=== PATIENT | female | born 1940 | race Caucasian/White ===

== ENCOUNTER → 2016-03-30 | Outpatient (CLI) | payer OTHER ==
--- NOTE | 2016-03-30 15:39 | DX ---
DEXA Bone Mineral Densitometry Clinical Indications: Postmenopausal, history of left hip fracture Comparison: Technique: Bone Mineral Densitometry (BMD) by Dual Energy X-Ray Absorptiometry (DEXA) was performed utilizing the [employer] scanner. The lumbar spine was evaluated in the AP projection. The bilat eral hips and forearm were evaluated in the AP projection. Vertebral fracture assessment was also pe rformed. Findings: AP Lumbar Spine: The L1and O1vbnbgiabe bodies were evaluated. L3 and L4 are excluded due to degenera tive sclerosis. BMD: 0.857 gm/cm2 T-score: -2.6 SD Z-score: -0.6 SD L1-L4 has increased by 5.5%, likely related to degenerative sclerosis. AP Left Hip: Neck BMD: 0.682 gm/cm2 T-score: -2.6 SD Z-score: -0.4 SD Total BMD is significantly decreased by 6.1%. This is likely not significant due to differences in me asuring the equipment AP Right Hip: Neck BMD: 0.701 gm/cm2 T-score: -2.4 SD Z-score: -0.2 SD No significant change. There is a large calcified lesion in the pelvis that is consistent with a calc ified fibroid. AP Right Forearm, 02/23: BMD: 0.536 gm/cm2 T-score: -3.9 SD Z-score: -1.4 SD Significantly increased by 12.4% Vertebral Fracture Assessment: No significant fracture deformity. Lumbar BMD is likely significantly increased by degenerative sclerosis and atherosclerotic calcification of the abdominal aorta. Conclusion: Considering the lowest measured site, the patient is osteoporotic and at increased risk for fracture. Since the forearm is the lowest measured site, it would be worthwhile to exclude hyperp arathyroidism. The ten year FRAX risk for any major osteoporotic fracture , which excludes the risk f or a wrist fracture, is 27.1% and for a hip fracture is 8.8%. According to the recommendations of the National Osteoporosis Foundation, this patient would be a good candidate for bone strengthening phar macologic intervention. Consider excluding secondary metabolic causes of bone loss (reported to be present in as many as 30% of patients with normal Z scores). Basic laboratory evaluation might include blood chemistries (calci um, phosphorus, alkaline phosphatase, liver function tests, creatinine, total protein), complete bloo d count, serum 25-OH- vitamin D3 level, 24-hour urine calcium, serum TSH and serum PTH. Targeted l aboratory testing based on individual patient circumstances might include serum electrophoresis (SPEP or UPEP), anti-tissue transglutaminase antibody levels (celiac disease) , serum bone specific alkal ine phosphatase, bone turnover markers (urine, serum) or fibroblast growth factor 23 (FGF 23)(evaluat e for unexplained osteomalacia). If secondary causes are excluded, then consider initiating treatment with a bisphosphonate (such as F osamax, Actonel or Boniva). If the patient is unable to use an oral bisphosphonate, another agent suc h as IV bisphosphonates (Boniva or Reclast), teriparatide (Forteo), a selective estrogen receptor mo dulator (Evista) or Denosumab ( anti RANKL monoclonal antibody) might be considered. If antiresorptive therapy is initiated and if clinically indicated, consider obtaining a baseline and 3 month followup bone resorption marker (NTX, CTX, TRAP5b or Pyridinoline, deoxypyridinoline) to mon itor the therapeutic effect. Supplementing an insufficient diet to achieve total intakes of 1500 mg calcium and 800 International Units of vitamin D daily should be considered. Osteoporosis prevention and treatment begins by modify ing risk factors. The patient should be encouraged to participate in a regular exercise program that includes weightbearing and muscle strengthening regimens, as is clinically appropriate. Recommend follow-up DEXA in one year to assess the efficacy of pharmacologic intervention and/or brigette ection of appropriate secondary cause.
== END ==
LOC: FIMAGING 14:00
PROVIDERS: ATTEND Physician Assistant
DX: M81.0 Age-related osteoporosis without current pathological fracture (principal)

== ENCOUNTER 2016-12-22 15:45 | Emergency (ER) | payer OTHER ==
--- NOTE | 2016-12-22 16:33 | EDPHY ---
H & P Smoking Status: Never smoked Time Seen by Provider: 12/22/16 16:03 HPI/ROS: CHIEF COMPLAINT: Fall, left eyebrow laceration, left shoulder injury HISTORY OF PRESENT ILLNESS: 76-year-old female presents to the emergency department by private vehicle with her neighbor after she had a witnessed fall just prior to arrival. The patient states that she was out front of her home and tripped over something and fell landing on her left side. She injured her left shoulder and left eyebrow. She thinks that she may have lost consciousness just briefly. She denies a headache. Denies neck or back pain. Denies chest pain or difficulty breathing. Denies any presyncopal symptoms prior to her fall. She complains of pain in her left shoulder and inability to move her left shoulder. She denies numbness or tingling in her fingers or toes. REVIEW OF SYSTEMS: Constitutional: No fever, no chills. Eyes: No double or blurry vision. ENT: No sore throat. Respiratory: No cough, no shortness of breath. Cardiac: No chest pain. Gastrointestinal: No abdominal pain, vomiting or diarrhea. Genitourinary: No dysuria. Musculoskeletal: Left shoulder injury. No neck or back pain. Skin: Eyebrow laceration. No rashes. Neurological: No headache. (Cami Olson) Past Medical/Surgical History: PE (Whitney,Cami M) Social History: and lives alone in [place] (Cami Olson) Physical Exam: General Appearance: Alert, no distress. Mentating normally and answering questions appropriately. Her neighbors at bedside. Eyes: Pupils equal and round. Extraocular motions are all intact. ENT: Mouth: Mucous membranes moist. No dental injury or malocclusion. Respiratory: No wheezing, rhonchi, or rales, lungs are clear to auscultation. Cardiovascular: Regular rate and rhythm. Gastrointestinal: Abdomen is soft and nontender, no masses, no rebound or guarding, bowel sounds normal. Neurological: Alert and oriented x 3, cranial nerves II through XII grossly intact Skin: 3 cm left eyebrow laceration. No facial bone tenderness. Warm and dry, no rashes. Musculoskeletal: Nontender to palpate along the cervical, thoracic or lumbar spine. Neck is supple. Extremities: Swelling noted to the left shoulder. Diffusely tender to palpate to the left humeral head. Unable to move the left shoulder secondary to pain. No pain with palpation in the left elbow, left wrist or hand. Normal sensation to light touch with normal 2 point discrimination. Strong radial pulse at the left and the right wrist. Psychiatric: Patient is oriented X 3, there is no agitation. (Cami Olson) Constitutional: Initial Vital Signs Temperature (C) 36.6 C 12/22/16 15:49 Heart Rate 87 12/22/16 15:49 Respiratory Rate 16 12/22/16 15:49 Blood Pressure 110/47 L 12/22/16 15:49 O2 Sat (%) 95 12/22/16 15:49 O2 Delivery Mode Room Air Allergies/Adverse Reactions: No Known Allergies Allergy (Verified 12/22/16 15:48) Home Medications: Medication Instructions Recorded Herbals/Supplements -Info Only 1 ea PO DAILY 10/23/15 Thyroid,Pork [ARMOUR THYROID] 15 mg PO DAILY 10/23/15 Hydrocodone/APAP 5/325 [[place] 1 each PO Q4-6PRN PRN #15 tab 12/22/16 5/325 (*)] Medical Decision Making - Diagnostics Imaging: Discussed imaging studies w/ house calls nurse practitioner Radiologist, I viewed and interpreted images myself - Diagnostics Imaging Results: Imaging Impressions Shoulder X-Ray 12/22/16 16:16 Impression: Acute comminuted fracture of the surgical neck of the left humerus with extension into the greater tubercle, which is mildly displaced, as described above. Cervical Spine CT 12/22/16 16:18 Impression: 1. No acute fracture or soft tissue swelling. 2. If the patient has persistent pain or neurologic deficits, consider cervical spine MRI. Findings discussed with Emergency Department physician anatomic pathology assistant, Cami Olson on 12/22/2016, 16:52. Head CT 12/22/16 16:18 Impression: 1. Left frontal periorbital scalp laceration. 2. No acute fracture or evidence of acute intracranial injury. Findings discussed with Emergency Department physician, Cami Olson on 2016, 16:52. Procedures: Laceration repair. Verbal consent was obtained from the patient. The 3 cm laceration on the left eyebrow was anesthetized using 1% lidocaine with epinephrine. The wound was irrigated with saline, draped and explored to its base with a gloved finger. There were no deep structures involved. The wound was repaired with 6 0 Prolene , 10 sutures. The wound repair was complex. The procedure was performed by myself. Patient was placed in a sling and examined post application in good placement with normal LICENSED DISPENSING OPTICIAN. (Cami Olson) ED Course/Re-evaluation: I evaluated this patient with Cami Olson. I spoke to Dr. Woody Cedeño from Orthopedic surgery and he thinks he will be most appropriate to sling and swath the left shoulder. No surgery is required at this time. She will follow up with Dr. Cedeño in the office will give her appropriate pain meds and instructions. (Sunday Henao) CT imaging of the head and cervical spine was ordered which revealed no fractures or intracranial bleeding. The laceration above her left eyebrow was repaired, see procedure note. I spoke with the on-call orthopedic surgeon, Dr. Woody Cedeño, who came to evaluate the patient. He did not recommend further imaging or any splint. He agreed with sling and he would see her in follow-up in the clinic in 2 weeks. The patient was able to ambulate without difficulty in the emergency department. She feels comfortable going home with a sling in place. She was given 400 mg of ibuprofen p. o. in the emergency department. She was given a prescription for hydrocodone per Dr. Woody Cedeño request. Patient was given precautions and told that this medication will make her very drowsy. (Cami Olson) Differential Diagnosis: Head injury including but not limited to concussion, skull fracture, intraparenchymal contusion, subarachnoid, subdural and epidural hematoma. Shoulder injury including but not limited to fracture, dislocation, contusion, sprain (Cami Olson) - Data Points Medications Given: Discontinued Medications Hydrocodone Bitart/Acetaminophen ([place] 5/325mg Prepack#6) 1 btl TAKEHOME EDNOW ONE Stop: 12/22/16 18:12 Last Admin: 12/22/16 18:15 Dose: 1 btl Ibuprofen (Motrin) 400 mg PO EDNOW ONE Stop: 12/22/16 17:37 Last Admin: 12/22/16 17:38 Dose: 400 mg Departure - Departure Disposition: Home, Routine, Self-Care Clinical Impression: Laceration of left eyebrow Qualifiers: Encounter type: initial encounter Qualified Code(s): S01.112A - Laceration without foreign body of left eyelid and periocular area, initial encounter Fracture of humeral head, left, closed Qualifiers: Encounter type: initial encounter Qualified Code(s): S42.292A - Other displaced fracture of upper end of left humerus, initial encounter for closed fracture Condition: Good Instructions: Hydrocodone/Acetaminophen (By mouth), Care For Your Stitches (ED) , Arm Fracture in Adults (ED), Laceration (ED), Acute Wounds (ED) Additional Instructions: Wound Care Follow-Up: Removal of sutures in 5 days. Suture removal is complimentary in uncomplicated cases. Infection or abnormal findings would require reevaluation by the MD. In that case, you may be billed. Keep sling on until follow-up with orthopedic surgeon in 2 weeks. Ibuprofen 400 mg every 8 hours as needed for pain. Hydrocodone for severe pain as directed only to help you sleep. Caution this medication will make you drowsy. Referrals: [facility] [Other] - As per Instructions Woody Cedeño MD [Medical Doctor] - 01/05/17 (Orthopedic surgeon) Prescriptions: Hydrocodone/APAP 5/325 [[place] 5/325 (*)] 1 each PO Q4-6PRN PRN #15 tab PRN Reason: Pain, Severe
--- NOTE | 2016-12-22 16:33 | EDPHY ---
H & P Smoking Status: Never smoked Time Seen by Provider: 12/22/16 16:03 HPI/ROS: CHIEF COMPLAINT: Fall, left eyebrow laceration, left shoulder injury HISTORY OF PRESENT ILLNESS: 76-year-old female presents to the emergency department by private vehicle with her neighbor after she had a witnessed fall just prior to arrival. The patient states that she was out front of her home and tripped over something and fell landing on her left side. She injured her left shoulder and left eyebrow. She thinks that she may have lost consciousness just briefly. She denies a headache. Denies neck or back pain. Denies chest pain or difficulty breathing. Denies any presyncopal symptoms prior to her fall. She complains of pain in her left shoulder and inability to move her left shoulder. She denies numbness or tingling in her fingers or toes. REVIEW OF SYSTEMS: Constitutional: No fever, no chills. Eyes: No double or blurry vision. ENT: No sore throat. Respiratory: No cough, no shortness of breath. Cardiac: No chest pain. Gastrointestinal: No abdominal pain, vomiting or diarrhea. Genitourinary: No dysuria. Musculoskeletal: Left shoulder injury. No neck or back pain. Skin: Eyebrow laceration. No rashes. Neurological: No headache. (Cami Olson) Past Medical/Surgical History: PE (Whitney,Cami M) Social History: and lives alone in [place] (aCmi Olson) Physical Exam: General Appearance: Alert, no distress. Mentating normally and answering questions appropriately. Her neighbors at bedside. Eyes: Pupils equal and round. Extraocular motions are all intact. ENT: Mouth: Mucous membranes moist. No dental injury or malocclusion. Respiratory: No wheezing, rhonchi, or rales, lungs are clear to auscultation. Cardiovascular: Regular rate and rhythm. Gastrointestinal: Abdomen is soft and nontender, no masses, no rebound or guarding, bowel sounds normal. Neurological: Alert and oriented x 3, cranial nerves II through XII grossly intact Skin: 3 cm left eyebrow laceration. No facial bone tenderness. Warm and dry, no rashes. Musculoskeletal: Nontender to palpate along the cervical, thoracic or lumbar spine. Neck is supple. Extremities: Swelling noted to the left shoulder. Diffusely tender to palpate to the left humeral head. Unable to move the left shoulder secondary to pain. No pain with palpation in the left elbow, left wrist or hand. Normal sensation to light touch with normal 2 point discrimination. Strong radial pulse at the left and the right wrist. Psychiatric: Patient is oriented X 3, there is no agitation. (Cami Olson) Constitutional: Initial Vital Signs Temperature (C) 36.6 C 12/22/16 15:49 Heart Rate 87 12/22/16 15:49 Respiratory Rate 16 12/22/16 15:49 Blood Pressure 110/47 L 12/22/16 15:49 O2 Sat (%) 95 12/22/16 15:49 O2 Delivery Mode Room Air Allergies/Adverse Reactions: No Known Allergies Allergy (Verified 12/22/16 15:48) Home Medications: Medication Instructions Recorded Herbals/Supplements -Info Only 1 ea PO DAILY 10/23/15 Thyroid,Pork [ARMOUR THYROID] 15 mg PO DAILY 10/23/15 Hydrocodone/APAP 5/325 [[place] 1 each PO Q4-6PRN PRN #15 tab 12/22/16 5/325 (*)] Medical Decision Making - Diagnostics Imaging: Discussed imaging studies w/ scallop binder Radiologist, I viewed and interpreted images myself - Diagnostics Imaging Results: Imaging Impressions Shoulder X-Ray 12/22/16 16:16 Impression: Acute comminuted fracture of the surgical neck of the left humerus with extension into the greater tubercle, which is mildly displaced, as described above. Cervical Spine CT 12/22/16 16:18 Impression: 1. No acute fracture or soft tissue swelling. 2. If the patient has persistent pain or neurologic deficits, consider cervical spine MRI. Findings discussed with Emergency Department physician trading assistant, Cami Olson on 12/22/2016, 16:52. Head CT 12/22/16 16:18 Impression: 1. Left frontal periorbital scalp laceration. 2. No acute fracture or evidence of acute intracranial injury. Findings discussed with Emergency Department physician, Cami Olson on 2016, 16:52. Procedures: Laceration repair. Verbal consent was obtained from the patient. The 3 cm laceration on the left eyebrow was anesthetized using 1% lidocaine with epinephrine. The wound was irrigated with saline, draped and explored to its base with a gloved finger. There were no deep structures involved. The wound was repaired with 6 0 Prolene , 10 sutures. The wound repair was complex. The procedure was performed by myself. Patient was placed in a sling and examined post application in good placement with normal PAPER CUP HANDLE MACHINE OPERATOR. (Cami Olson) ED Course/Re-evaluation: I evaluated this patient with Cami Olson. I spoke to Dr. Woody Cedeño from Orthopedic surgery and he thinks he will be most appropriate to sling and swath the left shoulder. No surgery is required at this time. She will follow up with Dr. Cedeño in the office will give her appropriate pain meds and instructions. (Sunday Henao) CT imaging of the head and cervical spine was ordered which revealed no fractures or intracranial bleeding. The laceration above her left eyebrow was repaired, see procedure note. I spoke with the on-call orthopedic surgeon, Dr. Woody Cedeño, who came to evaluate the patient. He did not recommend further imaging or any splint. He agreed with sling and he would see her in follow-up in the clinic in 2 weeks. The patient was able to ambulate without difficulty in the emergency department. She feels comfortable going home with a sling in place. She was given 400 mg of ibuprofen p. o. in the emergency department. She was given a prescription for hydrocodone per Dr. Woody Cedeño request. Patient was given precautions and told that this medication will make her very drowsy. (Cami Olson) Differential Diagnosis: Head injury including but not limited to concussion, skull fracture, intraparenchymal contusion, subarachnoid, subdural and epidural hematoma. Shoulder injury including but not limited to fracture, dislocation, contusion, sprain (Cami Olson) - Data Points Medications Given: Discontinued Medications Hydrocodone Bitart/Acetaminophen ([place] 5/325mg Prepack#6) 1 btl TAKEHOME EDNOW ONE Stop: 12/22/16 18:12 Last Admin: 12/22/16 18:15 Dose: 1 btl Ibuprofen (Motrin) 400 mg PO EDNOW ONE Stop: 12/22/16 17:37 Last Admin: 12/22/16 17:38 Dose: 400 mg Departure - Departure Disposition: Home, Routine, Self-Care Clinical Impression: Laceration of left eyebrow Qualifiers: Encounter type: initial encounter Qualified Code(s): S01.112A - Laceration without foreign body of left eyelid and periocular area, initial encounter Fracture of humeral head, left, closed Qualifiers: Encounter type: initial encounter Qualified Code(s): S42.292A - Other displaced fracture of upper end of left humerus, initial encounter for closed fracture Condition: Good Instructions: Hydrocodone/Acetaminophen (By mouth), Care For Your Stitches (ED) , Arm Fracture in Adults (ED), Laceration (ED), Acute Wounds (ED) Additional Instructions: Wound Care Follow-Up: Removal of sutures in 5 days. Suture removal is complimentary in uncomplicated cases. Infection or abnormal findings would require reevaluation by the MD. In that case, you may be billed. Keep sling on until follow-up with orthopedic surgeon in 2 weeks. Ibuprofen 400 mg every 8 hours as needed for pain. Hydrocodone for severe pain as directed only to help you sleep. Caution this medication will make you drowsy. Referrals: [facility] [Other] - As per Instructions Woody Cedeño MD [Medical Doctor] - 01/05/17 (Orthopedic surgeon) Prescriptions: Hydrocodone/APAP 5/325 [[place] 5/325 (*)] 1 each PO Q4-6PRN PRN #15 tab PRN Reason: Pain, Severe
[2016-12-22] MEDS ORDERED: IBUPROFEN 200 MG TAB PO ONE ×2 (17:36→17:37)
[2016-12-22 18:06] VITALS: BP 115/65; PULSE 80; RESP 18; TEMP 98.4; O2SAT 96
[2016-12-22] MEDS ORDERED: HYDROCOD/APAP 5/325 PREPACK#6 BTL TAKEHOME ONE ×2 (18:11→18:12)
--- NOTE | 2016-12-23 16:10 | GHP ---
[f rep st] PREOP HISTORY AND PHYSICAL DATE OF ADMISSION: 12/22/2016 ER CONSULTATION REASON FOR CONSULTATION: Left proximal humerus fracture. HISTORY OF PRESENT ILLNESS: The patient is a 76-year-old woman who presented to the emergency depart ment after a fall at her home. She tripped over a step and fell on her left side injuring her left s houlder and causing a laceration over the left eyebrow. She may have had a brief loss of consciousne ss. No current headaches on admission. ER evaluation revealed that she was stable, but complaining of left shoulder pain. X-rays were taken of the left shoulder that show a surgical neck fracture of the proximal humerus. There were fractur e lines extending up into the greater tuberosity, but the greater tuberosity segments are not displac ed. PAST MEDICAL HISTORY: REVIEW OF SYSTEMS: Negative with the exception of HPI. SOCIAL HISTORY: . Resides alone. Has a son whom I discussed her case with. PHYSICAL EXAM: GENERAL: Alert, oriented, cooperative. Answers questions appropriately. HEENT: PE RRL within normal limits. ENT within normal limits. Moist membranes. CHEST: Clear to auscultation . CARDIAC: Regular rate and rhythm. NEURO: Sensation is intact to all dermatomes. SKIN: The juan carlos ndiaye has a 3 cm laceration above her left eyebrow that is sutured closed. MUSCULOSKELETAL: Unable t o move her left shoulder because of pain. She does flex, extend the elbow; flex, extend the fingers and wrist with normal strength. There is moderate swelling around left shoulder. She is tender to p alpation over the proximal humerus. Pulses are 2+, radial and ulnar. ASSESSMENT: Left proximal humerus fracture. PLAN: The patient will go into a sling and swath. She is instructed to be very careful with any use of the left upper extremity. She can remove the sling for gentle motion of the elbow, wrist and fin gers, but should have it on at all other times. She will follow up me in the office in 2 weeks. Get new x-rays to make sure that this is not displacing further. Addendum: The patient was given pain medication, [place] 5/325 mg 1-2 p.o. q.4 hours p.r.n. pain. /[id number]/MODL
== END 2016-12-22 18:20 | disposition home or self-care (01) ==
PROC: 0HQ1XZZ Repair Face Skin, External Approach (ICD-10-PCS; principal; 2016-12-22)
DX: S01.112A Laceration without foreign body of left eyelid and periocular area, initial encounter (principal); S42.292A Other displaced fracture of upper end of left humerus, initial encounter for closed fracture; W01.0XXA Fall on same level from slipping, tripping and stumbling without subsequent striking against object, initial encounter; Y99.8 Other external cause status

== ENCOUNTER → 2017-08-04 | Outpatient (CLI) | payer OTHER, MEDICARE | LOC: BHFA 10:30 | PROVIDERS: ATTEND Internal Medicine Interventional Cardiology | DX: I77.9 Disorder of arteries and arterioles, unspecified (principal); I71.4 Abdominal aortic aneurysm, without rupture ==

== ENCOUNTER → 2017-08-25 | Outpatient (CLI) | payer OTHER, MEDICARE | LOC: BHFA 14:00 | PROVIDERS: ATTEND Internal Medicine Interventional Cardiology | DX: I77.9 Disorder of arteries and arterioles, unspecified (principal); I65.23 Occlusion and stenosis of bilateral carotid arteries ==

== ENCOUNTER → 2017-08-31 | Outpatient (CLI) | payer OTHER, MEDICARE ==
[~2017-08-31] MED LIST: IOPAMIDOL (ISOVUE 370) 100 ML BTL IV ONE
== END ==
LOC: FIMAGING 09:39
PROVIDERS: ATTEND Nurse Practitioner Adult Health
DX: I65.23 Occlusion and stenosis of bilateral carotid arteries (principal); J43.2 Centrilobular emphysema
CPT/HCPCS: 70498; Q9967; 82565-PO